=== PATIENT | male | born 1950 | race Caucasian/White ===

== ENCOUNTER 2017-01-28 19:43 | Emergency (ER) | payer BC, MEDICARE ==
[2017-01-28] MEDS ORDERED: Fentanyl 100 MCG/2 ML VIAL ONE (20:17)
[2017-01-28] MEDS ORDERED: Sodium Chloride 0.9% 1,000 ML ONE (20:17)
[2017-01-28] MEDS ORDERED: Ondansetron HCl/PF 4 MG/2 ML Vial ONE (20:17)
[2017-01-28 20:40] LABS: Band 7 % (5-11); Eosinophils 1 % (0-10); Hemoglobin 14.2 g/dL (14.0-18.0); Lymphocytes 4 % (21-51); MDiff Complete? YES; Mean Corpuscular HGB CONC 32.4 g/dL (32.0-36.0); Mean Corpuscular Hemoglobin 33.3 pg (27.0-31.0); Mean Platelet Volume 8.6 fL (7.4-10.4); Monocytes 4 % (0-10); Neutrophil 84 % (42-75); PLT Morphology Comment Appears Adequate; Platelet Count 134 thou/uL (130-400); RBC Morphology Normal; Red Blood Cell (RBC) Count 4.27 mill/uL (4.70-6.10); White Blood Cell (WBC) Count 12.5 thou/uL (4.8-10.8)
[2017-01-28 20:48] LABS: ALT (SGPT) 57 U/L (8-55); AST (SGOT) 48 U/L (5-34); Alkaline Phosphatase 71 U/L (40-150); Anion Gap 15 mmol/L (10-20); BUN (Urea Nitrogen) 16 mg/dL (8.4-25.7); Bilirubin, Total 0.6 mg/dL (0.2-1.2); Calc. Creatinine Clearance 0 mL/min (70-130); Calcium 8.9 mg/dL (7.8-10.44); Carbon Dioxide 22 mmol/L (23-31); Chloride 104 mmol/L (98-107); Estimated GFR-MDRD 85; Globulin 2.9 g/dL (2.4-3.5); Glucose 124 mg/dL (80-115); Lipase 35 U/L (8-78); Potassium 3.7 mmol/L (3.5-5.1); Protein, Total 6.9 g/dL (5.8-8.1); Sodium 137 mmol/L (136-145)
[2017-01-28 20:49] LABS: CKMB 2.2 ng/mL (0-6.6); Troponin I Less than 0.010 ng/mL (< 0.028)
== END 2017-01-28 21:42 | disposition short-term general hospital (02) ==
LOC: NAV ERS 19:43
DX: R10.811 Right upper quadrant abdominal tenderness (principal); R50.9 Fever, unspecified; R11.2 Nausea with vomiting, unspecified; Z87.891 Personal history of nicotine dependence; M19.90 Unspecified osteoarthritis, unspecified site
CPT/HCPCS: 36415; 80053; 82553; 83605; 83690; 84484; 85025; 93005; 96361; 96374; 96375; J2405; J3010; J7050